=== PATIENT | male | born 2000 | race American Indian/Alaskan Native ===

== ENCOUNTER 2020-06-18 19:26 | Emergency (ER) | payer SELFPAY ==
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
--- NOTE | 2020-06-18 22:47 | Cat Scan Report ---
CT head/brain wo con INDICATION: Patient complains of dizziness.. TECHNIQUE: Routine CT head without contrast. All CT scans at this location are performed using CT dos e reduction for ALARA by means of automated exposure control. COMPARISON: None. FINDINGS: BRAIN / INTRACRANIAL CONTENTS: No acute hemorrhage, mass effect, midline shift, or hydrocephalus. No appreciable acute large territorial or lacunar infarct. No chronic infarct or focal atrophy. Normal b rain volume and ventricular/sulcal size for age. ORBITS: No significant abnormality of visualized orbits. SINUSES / MASTOIDS: No significant abnormality of visualized sinuses and mastoid air cells. ADDITIONAL FINDINGS: None. IMPRESSION: 1. No acute intracranial abnormality. Signer Name: Emilie Berman MD Signed: 06/18/2020 10:43 PM Workstation Name: [id number]
[2020-06-19 01:30] VITALS: BP 103/74
[2020-06-19] MEDS ORDERED: diphenhydrAMINE 25 MG CAP PO ONE (03:19)
[2020-06-19] MEDS ORDERED: ACETAMINOPHEN 500 MG TAB PO ONE (03:19)
[2020-06-19] MEDS ORDERED: METOCLOPRAMIDE 10 MG TAB PO ONE (03:19)
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
== END 2020-06-19 04:24 | disposition home or self-care (01) ==
LOC: ED 19:26
DX: S16.1XXA Strain of muscle, fascia and tendon at neck level, initial encounter (principal); R51 Headache; J45.909 Unspecified asthma, uncomplicated; V89.2XXA Person injured in unspecified motor-vehicle accident, traffic, initial encounter; Y93.89 Activity, other specified; Y92.410 Unspecified street and highway as the place of occurrence of the external cause; Y99.8 Other external cause status
CPT/HCPCS: 70450; 99283

== ENCOUNTER 2020-06-21 21:18 | Emergency (ER) | payer SELFPAY | END 2020-06-21 22:00 | disposition left against medical advice (07) | LOC: ED 21:18 | DX: Z04.1 Encounter for examination and observation following transport accident (principal); Z53.21 Procedure and treatment not carried out due to patient leaving prior to being seen by health care provider ==